=== PATIENT | male | born 1985 | race Caucasian/White ===

== ENCOUNTER 2017-07-28 03:28 | Emergency (ER) | payer OTHER ==
[~2017-07-28] VITALS: Ht 170.2 cm; Wt 110.7 kg
[2017-07-28 04:13] LABS: BASOPHIL % 0.4 % (0-2); PLATELET COUNT 305 x10^3mcL (130-400); RED CELL DISTRIBUTION WIDTH 13.4 % (11.5-14.5)
[2017-07-28 04:27] LABS: CALCIUM 9.1 mg/dL (8.5-10.1); CARBON DIOXIDE 28.3 mmol/L (21-32); CHLORIDE SERUM 105 mmol/L (98-107); CREATININE SERUM 0.9 mg/dL (0.7-1.3); GFR1 > 60 mL/min; GLUCOSE SERUM 102 mg/dL (74-106); POTASSIUM SERUM 3.9 mmol/L (3.5-5.1); SODIUM SERUM 142 mmol/L (136-145)
[2017-07-28 04:32] LABS: ALKALINE PHOSPHATASE 135 U/L (46-116); ALT/SGPT 64 U/L (16-63); AMYLASE 41 U/L (25-115); AST/SGOT 42 U/L (15-37); BILIRUBIN TOTAL 0.44 mg/dL (0.20-1.00); LIPASE 288 IU/L (73-393)
[2017-07-28 05:34] VITALS: BP 132/84
== END 2017-07-28 05:34 | disposition home or self-care (01) ==
LOC: ED 03:28
PROVIDERS: Emergency Medicine
DX: R10.9 Unspecified abdominal pain (principal); F17.200 Nicotine dependence, unspecified, uncomplicated; Z71.6 Tobacco abuse counseling; Z88.8 Allergy status to other drugs, medicaments and biological substances
CPT/HCPCS: 36415; 83880; 99406

== ENCOUNTER 2017-11-01 06:25 | Day surgery (SDC) | payer OTHER ==
[~2017-11-01] VITALS: Ht 170.2 cm; Wt 110.2 kg
[2017-11-01 06:49] VITALS: BP 136/101
[2017-11-01 09:03] VITALS: BP 150/93
== END 2017-11-01 08:55 | disposition home or self-care (01) ==
LOC: DS 06:25 → OR 07:30 → DS 07:30
PROVIDERS: Internal Medicine Gastroenterology
PROC: 0DB68ZX Excision of Stomach, Via Natural or Artificial Opening Endoscopic, Diagnostic (ICD-10-PCS; principal; 2017-11-01 07:30)
PROC: 0DJD8ZZ Inspection of Lower Intestinal Tract, Via Natural or Artificial Opening Endoscopic (ICD-10-PCS; 2017-11-01 07:30)
DX: K64.8 Other hemorrhoids (principal)
CPT/HCPCS: 43235; 45378; J1200; J1610; J2250; J2310; J3010; J3490

== ENCOUNTER 2017-11-18 20:43 | Emergency (ER) | payer OTHER ==
[2017-11-18 21:43] VITALS: BP 157/108
== END 2017-11-18 21:43 | disposition home or self-care (01) ==
LOC: ED 20:43
DX: K29.20 Alcoholic gastritis without bleeding (principal); F12.90 Cannabis use, unspecified, uncomplicated; Z91.048 Other nonmedicinal substance allergy status; Z88.2 Allergy status to sulfonamides